=== PATIENT | male | born 1990 | race Caucasian/White ===

== ENCOUNTER 2016-12-05 17:05 | Emergency (ER) | payer OTHER ==
[2016-12-05] MEDS ORDERED: HYDROcod/ACETAM 5/325 MG TABLET ONE (18:49)
[2016-12-05] MEDS: HYDROcod/ACETAM 5/325 MG TABLET PO STA (18:51)
== END 2016-12-05 19:23 | disposition home or self-care (01) ==
DX: S62.025A Nondisplaced fracture of middle third of navicular [scaphoid] bone of left wrist, initial encounter for closed fracture (principal); W19.XXXA Unspecified fall, initial encounter; R03.0 Elevated blood-pressure reading, without diagnosis of hypertension; F17.200 Nicotine dependence, unspecified, uncomplicated
CPT/HCPCS: 29125; 73110; 99283; A9270

== ENCOUNTER 2017-01-04 13:35 | Outpatient (CLI) | payer OTHER | END 2017-01-04 13:36 | disposition home or self-care (01) | DX: S62.002D Unspecified fracture of navicular [scaphoid] bone of left wrist, subsequent encounter for fracture with routine healing (principal); M65.88 Other synovitis and tenosynovitis, other site ==